=== PATIENT | female | born 1980 | race Caucasian/White ===

== ENCOUNTER 2020-06-15 02:20 | Emergency (ER) | payer OTHER, SELFPAY ==
--- NOTE | ~2020-06-15 | XR_ITS ---
EXAMINATION: XR chest 2V DATE: 06/15/2020 02:55 INDICATION: Midline chest pain TECHNIQUE: frontal view of the chest was obtained. COMPARISON: None FINDINGS: Lungs appear mildly hyperexpanded. Mild biapical pleural-parenchymal scarring. No other airspace opac ities, pulmonary edema, pleural effusion or pneumothorax. The cardiomediastinal silhouette is normal. Thoracic dextroscoliosis with mild spondylosis. IMPRESSION: 1. Mild hyperexpansion of the lungs with mild biapical pleural-parenchymal scarring. Reviewed, dictated and finalized at location A. IMPRESSION: 1. Mild hyperexpansion of the lungs with mild biapical pleural-parenchymal scar ring.
[2020-06-15 02:17] VITALS: BP 116/76; PULSE 63; RESP 15; TEMP 37; O2SAT 99
[2020-06-15 02:22] VITALS: PULSE 65
--- NOTE | 2020-06-15 02:23 | ECG_ITS ---
Measurements Intervals Beggs Rate: 74 P: 83 [place]: 185 QRS: 86 QRSD: 106 T: 71 QT: 401 QTc: 447 Interpretive Statements SINUS RHYTHM POSSIBLE LEFT ATRIAL ENLARGEMENT INCOMPLETE RIGHT BUNDLE BRANCH BLOCK BASELINE ARTIFACT- I, II, III, AVR, AVL, AVF BORDERLINE ECG Electronically Signed On 06-15-2020 8:09:04 CDT by Marco Gutierres D.O.
[2020-06-15 02:35] LABS: Basophils Absolute Auto 0.1 K/mm3 (0.0-0.1); Basophils Percent Auto 0.7 % (0.2-1.2); Eosinophils Absolute Auto 0.2 K/mm3 (0-0.3); Eosinophils Percent Auto 1.5 % (0-4.4); Hematocrit 29.9 % (37.0-47.0); Hemoglobin 10.3 g/dL (12.0-15.0); Immature Granulocyte Absolute 0.06 K/mm3 (0.00-0.031); Immature Granulocyte Percent A 0.4 % (0-0.5); Lymphocytes Absolute Auto 2.95 K/mm3 (0.9-3.2); Lymphocytes Percent Auto 19.4 % (18.3-44.2); Mean Corpuscular HGB Conc 34.4 g/dl (32-36); Mean Corpuscular Hemoglobin 32.2 pg (26-34); Mean Corpuscular Volume 93.4 fl (80-100); Mean Platelet Volume 9.3 fl (7.4-10.4); Monocytes Absolute Auto 0.8 K/mm3 (0.1-0.6); Monocytes Percent Auto 5.5 % (2.6-8.5); Neutrophils Percent Auto 72.5 % (45.5-73.1); Platelet Count Result 246 k/mm3 (150-375); Red Cell Distribution Width 12.1 % (11.5-14.5); White Blood Count 15.2 K/mm3 (4.5-10.0)
[2020-06-15 02:44] LABS: INR 1.1; Prothrombin Time 13.4 Seconds (11.1-14.7)
[2020-06-15 02:45] LABS: Anion Gap 7 mmol/L (8-16); Blood Urea Nitrogen 7 mg/dL (7-17); Calcium 9.3 mg/dL (8.4-10.2); Carbon Dioxide 22 mmol/L (22-30); Chloride 110 mmol/L (98-107); Estimated Glomerular Filt Rate > 60; Glucose 106 mg/dL (65-105); Partial Thromboplastin Time 27.4 SECONDS (22.3-36.8); Sodium 139 mmol/L (137-145)
--- NOTE | 2020-06-15 02:49 | ED.CHESTPAIN ---
HPI - Chest Pain General Chief Complaint: Chest Pain Stated Complaint: cp Time Seen by Provider: 06/15/20 02:44 History of Present Illness HPI narrative: Patient presents with her for substernal chest pain in the night. She awoke from a nightmare and had clutching deep substernal chest pain radiating straight through to her back. It has resolved without treatment. She has never had this before. She has not had any cough fever chills or sweats. She does not have reflux. She smokes cigarettes, but quit drinking alcohol and quit doing marijuana. 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 She has not had any surgeries. MD complaint: chest pain Pertinent past history: other (Smoke cigarette) Onset (ago): hour(s) Timing of current episode: now resolved Prior episodes: No Onset: awoke with symptoms Pain location: substernal Severity: severe Relieving factors: other (Went away on its own) Exacerbating factors: nothing Associated symptoms: other (None) Treatment prior to arrival: none Related Data Allergies Allergy/AdvReac Type Severity Reaction Status Date / Time Sulfa (Sulfonamide Allergy Unknown Stopped Verified 06/15/20 02:24 Antibiotics) Breathing No Known Allergies Allergy Unverified 09/24/14 04:34 Review of Systems Review of Systems: Narrative: CONSTITUTIONAL: Denies fever, chills, or sweats. EYES: Denies visual changes, redness, or discharge. ENT: Denies rhinorrhea, congestion, sore throat, or otalgia. CARDIOVASCULAR: She had chest pain, but not palpitations, or edema. RESPIRATORY: Denies cough or dyspnea. GASTROINTESTINAL: Denies abdominal pain, nausea, vomiting, or diarrhea. GENITOURINARY: Denies dysuria or hematuria. SKIN: Denies rash or itching. MUSCULOSKELETAL: Denies back pain, joint pain, or myalgia. NEUROLOGIC: Denies headache, numbness, or weakness. . [facility] Past Medical History Medical History Smoking Surgical History Surgical History (Updated 06/15/20 @ 03:06 by Dana Reddy MD) No pertinent past surgical history Family History Family History (Updated 07/05/14 @ 07:13 by DOCTOR UNKNOWN) Sibling Family history of bipolar disorder Other Diabetes mellitus Family history of cardiovascular disease Family history of malignant neoplasm Social History Social History (Updated 06/15/20 @ 03:07 by Dana Reddy MD) Smoking status: Current every day smoker Alcohol intake: former Substance use: former Exam Narrative: Exam Narrative: GENERAL: Well-appearing, well-nourished, and in no acute distress. Very sweet HEAD: Normocephalic, atraumatic. EYES: PERRLA and EOMI. ENT: Nares clear, no rhinorrhea or epistaxis. Mucous membranes moist. NECK: Supple. CHEST: Clear to auscultation. No respiratory distress. HEART: Regular rate and rhythm. No murmur heard. Normal peripheral pulses. ABDOMEN: Soft, nontender, nondistended, normal active bowel sounds. EXTREMITIES: Normal range of motion. No edema. SKIN: Warm, dry, no rash. NEURO: No focal deficits. Alert and oriented x3. PSYCH: Normal mood and affect. Course Reevaluation(s) Reevaluation #1: Patient has remained chest pain-free since she has been here. Her did bring up the fact that she had a large bowl of chili before bed. I did encourage her to try to stop smoking. She does get usual Pap smears with her [facility]. Date: 06/15/20 Time: 04:00 Vital Signs Vital signs: Vital Signs Temperature 98.6 F 06/15/20 02:17 Pulse Rate 63 06/15/20 02:17 Respiratory Rate 15 06/15/20 02:17 Blood Pressure 116/76 06/15/20 02:17 Pulse Oximetry 99 06/15/20 02:17 Temperature 98.6 F 06/15/20 02:17 Pulse Rate 65 06/15/20 02:22 Respiratory Rate 15 06/15/20 02:17 Blood Pressure 116/76 06/15/20 02:17 Pulse Oximetry 99 06/15/20 02:17 MDM - Chest Pain Medical Records Data Attestation: I reviewed the patient's medical records. Lab Data Attestation: I reviewed the patient's lab results. Result diagr
[2020-06-15 02:58] LABS: Troponin I < 0.012 ng/mL (0.000-0.034)
[2020-06-15 04:00] VITALS: BP 104/70; PULSE 78; RESP 12; O2SAT 98
== END 2020-06-15 04:00 | disposition home or self-care (01) ==
PROVIDERS: Emergency Provider Emergency Medicine; PCP Family Medicine
DX: R07.89 Other chest pain (principal); F17.210 Nicotine dependence, cigarettes, uncomplicated; I45.10 Unspecified right bundle-branch block; R94.31 Abnormal electrocardiogram [ECG] [EKG]
CPT/HCPCS: 36415; 71046; 80048; 84484; 85025; 85610; 85730; 93005; 99284